=== PATIENT | female | born 1980 | race Caucasian/White ===

== ENCOUNTER 2018-05-07 13:26 | Emergency (ER) | payer SELFPAY ==
[~2018-05-07] VITALS: Ht 160 cm; Wt 61.0 kg
[2018-05-07] MEDS ORDERED: PRENATAL (13:51)
[2018-05-07 15:26] LABS: BASOPHILS % 0.5 % (0.0-2.0); CHLORIDE 103 mEq/L (98-107); HEMATOCRIT. 35.6 % (36.0-48.0); HEMOGLOBIN. 12.2 g/dL (12.0-16.0); LYMPHOCYTES % 20.4 % (20.0-50.0); MEAN CORPUSCULAR HEMOGLOBIN 32.9 pg (28.0-32.0); MEAN CORPUSCULAR VOLUME 96.5 fL (81.0-99.0); MEAN PLATELET VOLUME 9.8 fl (7.4-10.4); MONOCYTES % 7.8 % (2.0-8.0); NEUTROPHILS % 70.3 % (40.0-76.0); PLATELET 237 x1000/uL (130-400); RED BLOOD CELL COUNT 3.69 mill/uL (4.2-5.4); RED CELL DISTRIBUTION WIDTH 12.9 % (11.6-14.6)
[2018-05-07 15:51] LABS: B-HCG QUANTITATIVE 31555 mIU/mL (<3)
[2018-05-07 16:50] VITALS: BP 112/60
== END 2018-05-07 17:18 | disposition left against medical advice (07) ==
LOC: ER 13:26
DX: O26.892 Other specified pregnancy related conditions, second trimester (principal); R10.30 Lower abdominal pain, unspecified; Z3A.19 19 weeks gestation of pregnancy; Z90.49 Acquired absence of other specified parts of digestive tract
CPT/HCPCS: 36415; 76805; 80053; 84702; 85025; 99285

== ENCOUNTER 2018-05-30 12:22 | Observation (INO) | payer SELFPAY ==
[~2018-05-30 12:22] MED LIST: PRENATAL
== END 2018-05-30 12:45 | disposition left against medical advice (07) ==
LOC: L&D 12:22
PROVIDERS: ADMIT Obstetrics & Gynecology; ATTEND Obstetrics & Gynecology
DX: O26.892 Other specified pregnancy related conditions, second trimester (principal); R10.2 Pelvic and perineal pain; Z3A.23 23 weeks gestation of pregnancy
CPT/HCPCS: G0378